=== PATIENT | female | born 1930 | race Caucasian/White ===

== ENCOUNTER 2017-07-04 13:31 | Day surgery (SDC) | payer MEDICARE ==
[2017-07-04 14:07] LABS: INR 1.48; PROTHROMBIN TIME 18.3 SECONDS (12.4-14.5)
[2017-07-04] MEDS ORDERED: MUPIROCIN 2% OINT 22 GM TUBE As Ordered (15:49)
[2017-07-04] MEDS ORDERED: ISOVUE-300 61% 50ML VIAL (Q9967) As Ordered (15:50)
[2017-07-04] MEDS: CEFAZOLIN SOD 1 GM in APPROPRIATE DILUENT 1 EA IV (16:19)
[2017-07-04] MEDS ORDERED: fentaNYL 100 MCG/2 ML INJECTION (J3010) As Ordered (17:12)
[2017-07-04] MEDS ORDERED: LIDOCAINE 2% INJ 100 MG/5 ML SDV (FOR ANES.) As Ordered (17:12)
[2017-07-04] MEDS ORDERED: PROPOFOL 200 MG/20 ML VIAL As Ordered ×2 (17:12)
[2017-07-04] MEDS: LIDOCAINE 1% SDV INJ 30 ML VIAL As Ordered (17:25)
[2017-07-04] MEDS: LR 1,000 ML IV (18:15)
[2017-07-04] MEDS ORDERED: ONDANSETRON 4MG/2ML VIAL (J2405) IV (18:15)
[2017-07-04] MEDS ORDERED: fentaNYL 100 MCG/2 ML INJECTION (J3010) IV (18:15)
[2017-07-04] MEDS ORDERED: SLF 3 ML SYR IV (20:15)
[2017-07-04] MEDS: CitaloPRAM (CeleXA) 20 MG TAB PO (21:53)
[2017-07-04] MEDS: ACETAMINOPHEN TAB 650MG DOSE (2X325MG) PO (21:53)
[2017-07-04] MEDS: WARFARIN SOD 3 MG TAB PO (21:54)
[2017-07-04] MEDS: ASCORBIC ACID 250 MG TAB PO (21:54)
[2017-07-04] MEDS: SLF 3 ML SYR IV (21:54)
[2017-07-04] MEDS: **hydrALAZINE HCL** 25 MG TAB PO (21:54)
[2017-07-05] MEDS: ACETAMINOPHEN TAB 650MG DOSE (2X325MG) PO (03:28)
[2017-07-05] MEDS: hydroCHLOROthiazide 25 MG TAB PO (08:09)
[2017-07-05] MEDS: **hydrALAZINE HCL** 25 MG TAB PO ×2 (08:09→16:36)
[2017-07-05] MEDS: FUROSEMIDE 20 MG TAB PO (08:09)
[2017-07-05] MEDS: CALCIUM/VITAMIN D 500 MG TAB PO (08:09)
[2017-07-05] MEDS: MULTIVITAMINS/MINERALS THERAP 1 TAB PO (08:09)
[2017-07-05] MEDS: LISINOPRIL 20 MG TAB PO (08:10)
[2017-07-05] MEDS: oxyBUTYnin *DITROPAN XL* 5 MG TABCR PO (08:10)
[2017-07-05] MEDS: SLF 3 ML SYR IV ×2 (08:10→14:00)
[2017-07-05] MEDS: ASCORBIC ACID 250 MG TAB PO (08:10)
[2017-07-05] MEDS ORDERED: MAGNESIUM OXIDE 250 MG PO (09:00)
[2017-07-05] MEDS ORDERED: FELODIPINE 5 MG PO (09:00)
[2017-07-05] MEDS: WARFARIN SOD 4 MG TAB PO (16:36)
[2017-07-07] MEDS ORDERED: WARFARIN SOD 3 MG TAB PO (17:00)
== END 2017-07-05 17:19 | disposition home or self-care (01) ==
LOC: M SDC 13:31 → M PCU 18:35
DX: I44.2 Atrioventricular block, complete (principal); I48.2 Chronic atrial fibrillation; I44.7 Left bundle-branch block, unspecified; I11.9 Hypertensive heart disease without heart failure; R60.0 Localized edema; F41.9 Anxiety disorder, unspecified; F32.9 Major depressive disorder, single episode, unspecified; R94.31 Abnormal electrocardiogram [ECG] [EKG]; R29.898 Other symptoms and signs involving the musculoskeletal system; M12.9 Arthropathy, unspecified; R41.3 Other amnesia; G47.9 Sleep disorder, unspecified; N28.9 Disorder of kidney and ureter, unspecified; Z79.899 Other long term (current) drug therapy; Z79.01 Long term (current) use of anticoagulants; Z87.891 Personal history of nicotine dependence
CPT/HCPCS: 33207